=== PATIENT | male | born 1995 | race Hispanic/Latino ===

== ENCOUNTER 2018-03-18 20:17 | Inpatient (IN) | payer MEDICAID ==
[~2018-03-18] VITALS: Ht 152.4 cm; Wt 42.1 kg
[~2018-03-18 20:17] MED LIST: LAMO25TA40 PEG; LEVO500T2 PO; PANT40TA25 PO; POLY17PO4 PO; SIME80TA12 PO
[2018-03-18 21:00] LABS: BASOPHILS % (AUTO) 0.1 % (0.0-5.0); EOSINOPHILS % (AUTO) 0.2 % (0.0-8.0); HEMATOCRIT 46.3 % (42-54); LYMPHOCYTES % (AUTO) 7.3 % (21.0-51.0); MEAN CORPUSCULAR HEMOGLOBIN 26.7 pg (27.0-33.0); MEAN CORPUSCULAR HGB CONC 32.8 g/dL (32.0-36.0); MEAN CORPUSCULAR VOLUME 81.3 fL (79-99); MONOCYTES % (AUTO) 2.5 % (3.0-13.0); NEUTROPHILS % (AUTO) 89.9 % (40.0-77.0); NUCLEATED RED BLOOD CELLS 0.1 % (0.0-0.19); PLATELET COUNT (AUTO) 174 K/uL (130-400); RED BLOOD CELL COUNT(AUTO) 5.69 MIL/uL (4.50-6.20); RED CELL DISTRIBUTION WIDTH 18.8 % (11.0-15.5)
[2018-03-18 21:11] LABS: CARBON DIOXIDE 27 mmol/L (21-32); CHLORIDE 104 mmol/L (101-111); CREATININE 0.8 mg/dL (0.5-1.5); GLOMERULAR FILTR. RATE CALC 127 mL/min (>60); GLUCOSE,RANDOM 72 mg/dL (70-105); POTASSIUM 4.4 mmol/L (3.5-5.1); SODIUM SERUM 141 mmol/L (136-145); UREA NITROGEN, BLOOD 29 mg/dL (7-18)
[2018-03-18] MEDS ORDERED: SODIUM CHLORIDE 0.9% 1000ML 1,000 ML IV ONE (21:12)
[2018-03-18 21:13] LABS: INR 1.02 (0.85-1.15); PARTIAL THROMBOPLASTIN TIME 24.7 SEC (26.3-35.5); PROTHROMBIN TIME 10.7 SEC (9.6-11.6)
[2018-03-18] MEDS ORDERED: ACETAMINOPHEN 650 MG SUPPOSITORY RC ONE (21:13)
[2018-03-18] MEDS ORDERED: METRONIDAZOLE 500MG/100ML BAG 100 ML ONE (21:13)
[2018-03-18] MEDS ORDERED: IOPAMIDOL-370 75 ML VIAL IV ONE (21:25)
[2018-03-18 21:26] LABS: ALANINE AMINOTRANSFERASE 35 U/L (12-78); ALBUMIN 3.8 g/dL (3.5-5.0); ASPARTATE AMINOTRANSFERASE 41 U/L (10-37); BILIRUBIN,TOTAL 0.7 mg/dL (0.2-1.0); CREATINE KINASE MB 0.5 ng/mL (0.5-3.6); CREATINE KINASE, TOTAL 114 U/L (21-232); MYOGLOBIN 124 ng/mL (10-92); TOTAL PROTEIN, SERUM 7.7 g/dL (6.0-8.3); TROPONIN I < 0.04 ng/mL (0.00-0.06)
[2018-03-18 23:11] LABS: APPEARANCE,URINE Cloudy (CLEAR); BILIRUBIN,URINE Small (NEGATIVE); COLOR,URINE Dark Yellow (YELLOW); GLUCOSE, URINE (UA) Negative (NEGATIVE); KETONES,URINE Negative (NEGATIVE); LEUKOCYTE ESTERASE ,URINE Small (NEGATIVE); NITRATE,URINE Negative (NEGATIVE); OCCULT BLOOD,URINE Small (NEGATIVE); PROTEIN,URINE POS 1+ (NEGATIVE)
[2018-03-18 23:22] LABS: BACTERIA,URINE Few /HPF (None Seen); MUCUS,URINE Moderate LPF (None Seen); RENAL EPITHELIAL CELLS,URINE Moderate /HPF (None Seen); SQUAMOUS EPITHELIAL CELL,UR Many /HPF (0-2)
[2018-03-19] VITALS (22 sets, daily range): BP systolic 83–109; BP diastolic 41–63
[2018-03-19] MEDS ORDERED: SODIUM CHLORIDE 0.9% 1000ML 1,000 ML IV ONE (00:52)
[2018-03-19] MEDS: LEVOFLOXACIN 500 MG/D5W 100 ML 100 ML IV SCH (01:00)
[2018-03-19] MEDS ORDERED: LEVOFLOXACIN 500 MG/D5W 100 ML 100 ML ONE (01:04)
[2018-03-19] MEDS ORDERED: LIDOCAINE HCL-MPF 1% 2ML VIAL IJ PRN (01:45)
[2018-03-19] MEDS ORDERED: ACETAMINOPHEN 325 MG TAB PO PRN ×2 (01:45)
[2018-03-19] MEDS ORDERED: POTASSIUM CHLORIDE 20MEQ/100ML 100 ML IV PRN (01:45)
[2018-03-19] MEDS ORDERED: POTASSIUM CHLORIDE 20 MEQ ERTAB PO PRN (01:45)
[2018-03-19] MEDS ORDERED: GUAIFENESIN-DM 200/20 MG 10 ML PO PRN (01:45)
[2018-03-19] MEDS ORDERED: LACTULOSE 20 GM/30 ML UDCUP ONE (01:47)
[2018-03-19] MEDS ORDERED: ONDANSETRON HCL MDV 20ML 2 MG/ML VIAL IVP PRN (02:00)
[2018-03-19] MEDS ORDERED: VANCOMYCIN 1GM+NS 250ML 250 ML IV SCH (02:00)
[2018-03-19] MEDS ORDERED: NOREPINEPHRINE BITARTRATE 1 MG/1 ML ML IV ONE (03:13)
[2018-03-19] MEDS ORDERED: DEXTROSE 5%-WATER 500 ML IV ONE (03:14)
[2018-03-19] MEDS: SODIUM CHLORIDE 0.9% 1000ML 1,000 ML IV SCH ×3 (05:08→17:45)
[2018-03-19] MEDS ORDERED: NOREPINEPHRINE 4MG/NS 250ML 250 ML IV SCH (05:15)
[2018-03-19] MEDS ORDERED: IBUP100O20 PO (06:18)
[2018-03-19 07:02] LABS: BASOPHILS % (AUTO) 0.1 % (0.0-5.0); LYMPHOCYTES % (AUTO) 3.5 % (21.0-51.0); MEAN CORPUSCULAR HEMOGLOBIN 26.3 pg (27.0-33.0); MEAN CORPUSCULAR HGB CONC 32.3 g/dL (32.0-36.0); MEAN CORPUSCULAR VOLUME 81.6 fL (79-99); MONOCYTES % (AUTO) 6.6 % (3.0-13.0); NEUTROPHILS % (AUTO) 89.8 % (40.0-77.0); NUCLEATED RED BLOOD CELLS 0.1 % (0.0-0.19); PLATELET COUNT (AUTO) 137 K/uL (130-400); RED BLOOD CELL COUNT(AUTO) 4.91 MIL/uL (4.50-6.20); RED CELL DISTRIBUTION WIDTH 18.6 % (11.0-15.5); WHITE BLOOD COUNT (AUTO) 17.4 K/uL (4.8-10.8)
[2018-03-19 07:18] LABS: CREATININE 1.1 mg/dL (0.5-1.5); POTASSIUM 3.4 mmol/L (3.5-5.1)
[2018-03-19] MEDS: POTASSIUM CHLORIDE 10% ELIXIR 20 MEQ/15 ML UDCUP PO PRN ×2 (08:56→14:52)
[2018-03-19] MEDS: IPRATROPIUM/ALBUTEROL SULFATE 3 ML SOLUTION IH SCH ×3 (11:39→23:34)
[2018-03-19] MEDS ORDERED: BISA10SU16 RC (13:57)
[2018-03-19] MEDS ORDERED: BISACODYL 10 MG SUPP.RECT RC PRN (14:00)
[2018-03-19] MEDS: VANCOMYCIN 500MG+NS 100ML 100 ML IV SCH (14:52)
[2018-03-19] MEDS ORDERED: GENTOO OU (18:36)
[2018-03-19] MEDS: LAMOTRIGINE 25 MG TAB PEG SCH (20:09)
[2018-03-19] MEDS: LACTULOSE 20 GM/30 ML UDCUP PO PRN (20:09)
[2018-03-19] MEDS: GENTAMICIN SULFATE 0.3% 3.5 GM OPHTH OINT OU SCH (20:15)
[2018-03-19] MEDS ORDERED: ACETAMINOPHEN ELIXIR 650 MG/20.3 ML UDCUP PEG PRN ×2 (23:15)
[2018-03-19] MEDS ORDERED: ACETAMINOPHEN ELIXIR 650 MG/20.3 ML UDCUP ONE (23:32)
[2018-03-20] VITALS (26 sets, daily range): BP systolic 82–122; BP diastolic 43–78
[2018-03-20] MEDS: LEVOFLOXACIN 500 MG/D5W 100 ML 100 ML IV SCH (00:34)
[2018-03-20] MEDS: GENTAMICIN SULFATE 0.3% 3.5 GM OPHTH OINT OU SCH ×4 (00:34→19:21)
[2018-03-20] MEDS: SODIUM CHLORIDE 0.9% 1000ML 1,000 ML IV SCH ×3 (01:42→19:24)
[2018-03-20] MEDS: VANCOMYCIN 500MG+NS 100ML 100 ML IV SCH ×3 (01:53→21:54)
[2018-03-20 05:18] LABS: BASOPHILS % (AUTO) 0.1 % (0.0-5.0); LYMPHOCYTES % (AUTO) 6.7 % (21.0-51.0); MEAN CORPUSCULAR HEMOGLOBIN 27.3 pg (27.0-33.0); MEAN CORPUSCULAR HGB CONC 33.1 g/dL (32.0-36.0); MEAN CORPUSCULAR VOLUME 82.6 fL (79-99); NEUTROPHILS % (AUTO) 87.2 % (40.0-77.0); PLATELET COUNT (AUTO) 118 K/uL (130-400); RED BLOOD CELL COUNT(AUTO) 4.36 MIL/uL (4.50-6.20); RED CELL DISTRIBUTION WIDTH 18.8 % (11.0-15.5); WHITE BLOOD COUNT (AUTO) 17.2 K/uL (4.8-10.8)
[2018-03-20 05:19] LABS: CREATININE 0.7 mg/dL (0.5-1.5); POTASSIUM 3.3 mmol/L (3.5-5.1)
[2018-03-20] MEDS: POTASSIUM CHLORIDE 10% ELIXIR 20 MEQ/15 ML UDCUP PO PRN (06:26)
[2018-03-20] MEDS: IPRATROPIUM/ALBUTEROL SULFATE 3 ML SOLUTION IH SCH ×3 (06:41→19:20)
[2018-03-20] MEDS ORDERED: VANCOMYCIN 1GM+NS 250ML 250 ML IV SCH (14:30)
[2018-03-20] MEDS: LAMOTRIGINE 25 MG TAB PEG SCH (20:29)
[2018-03-21] VITALS (18 sets, daily range): BP systolic 99–128; BP diastolic 45–83
[2018-03-21] MEDS: LEVOFLOXACIN 500 MG/D5W 100 ML 100 ML IV SCH (00:20)
[2018-03-21] MEDS: GENTAMICIN SULFATE 0.3% 3.5 GM OPHTH OINT OU SCH ×4 (00:21→18:45)
[2018-03-21] MEDS: IPRATROPIUM/ALBUTEROL SULFATE 3 ML SOLUTION IH SCH ×4 (00:47→19:09)
[2018-03-21] MEDS: SODIUM CHLORIDE 0.9% 1000ML 1,000 ML IV SCH ×2 (02:25→19:37)
[2018-03-21 04:41] LABS: CREATININE 0.6 mg/dL (0.5-1.5); POTASSIUM 3.6 mmol/L (3.5-5.1)
[2018-03-21 05:03] LABS: BASOPHILS % (AUTO) 0.3 % (0.0-5.0); EOSINOPHILS % (AUTO) 0.1 % (0.0-8.0); HEMATOCRIT 34.9 % (42-54); MEAN CORPUSCULAR HEMOGLOBIN 26.4 pg (27.0-33.0); MEAN CORPUSCULAR HGB CONC 32.5 g/dL (32.0-36.0); MEAN CORPUSCULAR VOLUME 81.3 fL (79-99); MONOCYTES % (AUTO) 3.9 % (3.0-13.0); NEUTROPHILS % (AUTO) 88.7 % (40.0-77.0); PLATELET COUNT (AUTO) 118 K/uL (130-400); RED BLOOD CELL COUNT(AUTO) 4.29 MIL/uL (4.50-6.20); RED CELL DISTRIBUTION WIDTH 18.8 % (11.0-15.5)
[2018-03-21] MEDS: VANCOMYCIN 500MG+NS 100ML 100 ML IV SCH ×3 (05:43→22:11)
[2018-03-21] MEDS ORDERED: FUROSEMIDE 10 MG/ML 2ML VIAL ONE (06:39)
[2018-03-21 07:27] LABS: ABG BASE EXCESS -0.2 mmol/L (-2.0-3.0); ABG HCO3 24.1 mmol/L (21.0-28.0); ABG OXYGEN SATURATION 96.3 % (95.0-99.0); ABG PCO2 38 mmHg (35-48)
[2018-03-21] MEDS ORDERED: FUROSEMIDE 10 MG/ML 2ML VIAL IV SCH (07:35)
[2018-03-21] MEDS: LAMOTRIGINE 25 MG TAB PEG SCH (19:49)
[2018-03-22 00:22] VITALS: BP 110/63
[2018-03-22] MEDS: LEVOFLOXACIN 500 MG/D5W 100 ML 100 ML IV SCH (00:28)
[2018-03-22] MEDS: GENTAMICIN SULFATE 0.3% 3.5 GM OPHTH OINT OU SCH ×4 (00:28→18:45)
[2018-03-22] MEDS: IPRATROPIUM/ALBUTEROL SULFATE 3 ML SOLUTION IH SCH ×5 (00:39→23:57)
[2018-03-22] MEDS: SODIUM CHLORIDE 0.9% 1000ML 1,000 ML IV SCH ×2 (00:40→20:22)
[2018-03-22 04:42] VITALS: BP 113/69
[2018-03-22] MEDS: VANCOMYCIN 500MG+NS 100ML 100 ML IV SCH ×3 (05:52→21:26)
[2018-03-22 06:25] LABS: HEMATOCRIT 34.1 % (42-54); MEAN CORPUSCULAR HEMOGLOBIN 27.4 pg (27.0-33.0); MEAN CORPUSCULAR HGB CONC 33.8 g/dL (32.0-36.0); NUCLEATED RED BLOOD CELLS 0.1 % (0.0-0.19); PLATELET COUNT (AUTO) 134 K/uL (130-400); RED CELL DISTRIBUTION WIDTH 18.7 % (11.0-15.5); WHITE BLOOD COUNT (AUTO) 7.4 K/uL (4.8-10.8)
[2018-03-22 06:40] LABS: CREATININE 0.6 mg/dL (0.5-1.5); MAGNESIUM 1.7 mg/dL (1.80-2.40); POTASSIUM 3.4 mmol/L (3.5-5.1)
[2018-03-22] MEDS: POTASSIUM CHLORIDE 10% ELIXIR 20 MEQ/15 ML UDCUP PO PRN (06:55)
[2018-03-22] MEDS ORDERED: VANCOMYCIN 500MG+NS 100ML 100 ML IV SCH (07:00)
[2018-03-22 08:00] VITALS: BP 118/74
[2018-03-22] MEDS ORDERED: MAGNESIUM 2GM PREMIX 50ML 50 ML IV SCH (10:30)
[2018-03-22 11:55] VITALS: BP 113/81
[2018-03-22] MEDS: HEPARIN SODIUM 5000UNIT/ML 1ML VIAL SQ SCH ×3 (13:15→20:18)
[2018-03-22] MEDS: LEVOFLOXACIN 500 MG TABLET PO SCH (13:16)
[2018-03-22 16:00] VITALS: BP 124/64
[2018-03-22] MEDS: LACTULOSE 20 GM/30 ML UDCUP PO PRN (18:09)
[2018-03-22 19:20] VITALS: BP 126/82
[2018-03-22] MEDS: DOXYCYCLINE HYCLATE 100 MG TABLET PO SCH (20:08)
[2018-03-22] MEDS: LAMOTRIGINE 25 MG TAB PEG SCH (20:08)
[2018-03-23] VITALS (7 sets, daily range): BP systolic 107–139; BP diastolic 69–87
[2018-03-23] MEDS: GENTAMICIN SULFATE 0.3% 3.5 GM OPHTH OINT OU SCH ×4 (00:32→19:43)
[2018-03-23] MEDS: SODIUM CHLORIDE 0.9% 1000ML 1,000 ML IV SCH ×2 (03:19→18:22)
[2018-03-23 06:18] LABS: HEMATOCRIT 35.3 % (42-54); MEAN CORPUSCULAR HEMOGLOBIN 27.1 pg (27.0-33.0); MEAN CORPUSCULAR HGB CONC 33.5 g/dL (32.0-36.0); MEAN CORPUSCULAR VOLUME 80.8 fL (79-99); NUCLEATED RED BLOOD CELLS 0.1 % (0.0-0.19); PLATELET COUNT (AUTO) 145 K/uL (130-400); RED BLOOD CELL COUNT(AUTO) 4.37 MIL/uL (4.50-6.20); RED CELL DISTRIBUTION WIDTH 19.1 % (11.0-15.5); WHITE BLOOD COUNT (AUTO) 6.6 K/uL (4.8-10.8)
[2018-03-23 06:28] LABS: ALBUMIN 2.8 g/dL (3.5-5.0); BILIRUBIN,TOTAL 0.5 mg/dL (0.2-1.0); CREATININE 0.7 mg/dL (0.5-1.5); MAGNESIUM 2.2 mg/dL (1.80-2.40); PHOSPHORUS 3.8 mg/dL (2.5-4.9); POTASSIUM 3.4 mmol/L (3.5-5.1); TOTAL PROTEIN, SERUM 6.2 g/dL (6.0-8.3)
[2018-03-23] MEDS: VANCOMYCIN 500MG+NS 100ML 100 ML IV SCH (06:54)
[2018-03-23] MEDS: POTASSIUM CHLORIDE 10% ELIXIR 20 MEQ/15 ML UDCUP PO PRN (06:55)
[2018-03-23] MEDS: IPRATROPIUM/ALBUTEROL SULFATE 3 ML SOLUTION IH SCH ×3 (07:25→18:36)
[2018-03-23 08:16] LABS: LYMPHOCYTES % (MANUAL) 28 % (22-44); MAN.DIFF COMMENT-IMPRESSION MANUAL DIFFERENTIAL; MONOCYTES % (MANUAL) 9 % (2-9); PLATELET MORPHOLOGY COMMENT ADEQUATE; SEGMENTED NEUTROPHILS % 63 % (40-70)
[2018-03-23] MEDS: HEPARIN SODIUM 5000UNIT/ML 1ML VIAL SQ SCH ×2 (09:00→21:00)
[2018-03-23] MEDS: LEVOFLOXACIN 500 MG TABLET PO SCH (09:18)
[2018-03-23] MEDS: DOXYCYCLINE HYCLATE 100 MG TABLET PO SCH (09:19)
[2018-03-23] MEDS ORDERED: COMPOUND IV REFRIGERATED 1 EACH IVSOLN MISC PRN (14:15)
[2018-03-23] MEDS: VANCOMYCIN 750MG + NS 250 ML IV SCH ×4 (18:02→20:46)
[2018-03-23] MEDS: LACTULOSE 20 GM/30 ML UDCUP PO PRN (18:06)
[2018-03-23] MEDS: LAMOTRIGINE 25 MG TAB PEG SCH (20:47)
[2018-03-24] MEDS: IPRATROPIUM/ALBUTEROL SULFATE 3 ML SOLUTION IH SCH ×2 (00:01→07:02)
[2018-03-24] MEDS: GENTAMICIN SULFATE 0.3% 3.5 GM OPHTH OINT OU SCH ×3 (00:45→12:45)
[2018-03-24 04:00] VITALS: BP 132/83
[2018-03-24] MEDS: POTASSIUM CHLORIDE 10% ELIXIR 20 MEQ/15 ML UDCUP PO PRN ×2 (04:45→05:59)
[2018-03-24] MEDS: VANCOMYCIN 750MG + NS 250 ML IV SCH ×4 (05:59→14:30)
[2018-03-24] MEDS: SODIUM CHLORIDE 0.9% 1000ML 1,000 ML IV SCH (06:58)
[2018-03-24] MEDS: HEPARIN SODIUM 5000UNIT/ML 1ML VIAL SQ SCH (08:17)
[2018-03-24] MEDS: LEVOFLOXACIN 500 MG TABLET PO SCH (08:18)
[2018-03-24] MEDS: LACTULOSE 20 GM/30 ML UDCUP PO PRN (08:21)
[2018-03-24 08:24] LABS: CREATININE 0.7 mg/dL (0.5-1.5); POTASSIUM 4.1 mmol/L (3.5-5.1)
[2018-03-24 08:30] VITALS: BP 130/87
[2018-03-24] MEDS ORDERED: LEVO500T2 PO (11:43)
[2018-03-24 12:08] VITALS: BP 129/81
== END 2018-03-24 16:45 | disposition home or self-care (01) | DRG 720 ==
LOC: EDH 20:17 → EDHIP 20:18 → 2BH 03-19 04:29 → 2CH 03-20 20:06 → 3CH 03-21 18:19
PROVIDERS: ADMIT Internal Medicine; ATTEND Internal Medicine
DX: A41.9 Sepsis, unspecified organism (principal); J96.01 Acute respiratory failure with hypoxia; J69.0 Pneumonitis due to inhalation of food and vomit; R65.21 Severe sepsis with septic shock; G82.50 Quadriplegia, unspecified; R13.12 Dysphagia, oropharyngeal phase; G40.909 Epilepsy, unspecified, not intractable, without status epilepticus; K59.00 Constipation, unspecified; K21.9 Gastro-esophageal reflux disease without esophagitis; B96.89 Other specified bacterial agents as the cause of diseases classified elsewhere; E87.6 Hypokalemia; Z53.20 Procedure and treatment not carried out because of patient's decision for unspecified reasons; F79 Unspecified intellectual disabilities; J98.19 Other pulmonary collapse; Z88.1 Allergy status to other antibiotic agents; Z88.8 Allergy status to other drugs, medicaments and biological substances; Z87.01 Personal history of pneumonia (recurrent); Z87.440 Personal history of urinary (tract) infections; Z74.01 Bed confinement status; Q89.8 Other specified congenital malformations; Z93.1 Gastrostomy status; Z95.1 Presence of aortocoronary bypass graft; Z88.0 Allergy status to penicillin
CPT/HCPCS: 36415; 36600; 71045; 71250; 74018; 74177; 80048; 80053; 80202; 81001; 82550; 82553; 82803; 83605; 83735; 83874; 84100; 84484; 85025; 85027; 85610; 85730; 87040; 87088; 87186; 93005; 94640; 94664; 94667; 94668; A6250; J1644; J1940; J1956; J3370; J3475; J3490; J7030; J7060; Q9967

== ENCOUNTER 2018-04-26 04:52 | Inpatient (IN) | payer MEDICAID ==
[~2018-04-26] VITALS: Ht 152.4 cm; Wt 45.1 kg
[~2018-04-26 04:52] MED LIST changes: +BISA10SU16 RC; +GENTOO OU; +IBUP100O20 PO; -PANT40TA25 PO; -POLY17PO4 PO; -SIME80TA12 PO
[2018-04-26] MEDS ORDERED: ACETAMINOPHEN 650 MG SUPPOSITORY RC ONE (05:10)
[2018-04-26] MEDS ORDERED: LORAZEPAM 2 MG/ML 1 ML VIAL ONE (05:10)
[2018-04-26 05:22] LABS: APPEARANCE,URINE Clear (CLEAR); BILIRUBIN,URINE Negative (NEGATIVE); COLOR,URINE Dark Yellow (YELLOW); GLUCOSE, URINE (UA) Negative (NEGATIVE); KETONES,URINE Negative (NEGATIVE); LEUKOCYTE ESTERASE ,URINE Trace (NEGATIVE); NITRATE,URINE Negative (NEGATIVE); OCCULT BLOOD,URINE Negative (NEGATIVE); PH,URINE 8.5 (5.0-8.0); PROTEIN,URINE Trace (NEGATIVE)
[2018-04-26] MEDS ORDERED: MEROPENEM 1 GM VIAL ONE (05:24)
[2018-04-26 05:27] LABS: BACTERIA,URINE Rare /HPF (None Seen); MUCUS,URINE Few LPF (None Seen); RBC,URINE None Seen /HPF (0-1); SQUAMOUS EPITHELIAL CELL,UR Few /HPF (0-2); WBC,URINE None Seen /HPF (0-1)
[2018-04-26] MEDS ORDERED: IPRATROPIUM 0.5 MG/2.5 ML INH IH ONE (05:29)
[2018-04-26 05:48] LABS: CARBON DIOXIDE 25 mmol/L (21-32); CHLORIDE 107 mmol/L (101-111); CREATININE 0.9 mg/dL (0.5-1.5); GLOMERULAR FILTR. RATE CALC 111 mL/min (>60); GLUCOSE,RANDOM 91 mg/dL (70-105); POTASSIUM 4.6 mmol/L (3.5-5.1); SODIUM SERUM 149 mmol/L (136-145); UREA NITROGEN, BLOOD 22 mg/dL (7-18)
[2018-04-26 05:55] LABS: BASOPHILS % (AUTO) 0.3 % (0.0-5.0); EOSINOPHILS % (AUTO) 0.1 % (0.0-8.0); HEMATOCRIT 48.2 % (42-54); MEAN CORPUSCULAR HEMOGLOBIN 26.9 pg (27.0-33.0); MEAN CORPUSCULAR VOLUME 84.1 fL (79-99); MONOCYTES % (AUTO) 3.6 % (3.0-13.0); NUCLEATED RED BLOOD CELLS 0.1 % (0.0-0.19); PLATELET COUNT (AUTO) 164 K/uL (130-400); RED BLOOD CELL COUNT(AUTO) 5.73 MIL/uL (4.50-6.20); RED CELL DISTRIBUTION WIDTH 18.9 % (11.0-15.5); WHITE BLOOD COUNT (AUTO) 11.9 K/uL (4.8-10.8)
[2018-04-26 05:59] LABS: ALANINE AMINOTRANSFERASE 23 U/L (12-78); ALBUMIN 3.9 g/dL (3.5-5.0); ASPARTATE AMINOTRANSFERASE 29 U/L (10-37); BILIRUBIN,TOTAL 0.3 mg/dL (0.2-1.0); CREATINE KINASE MB 0.6 ng/mL (0.5-3.6); CREATINE KINASE, TOTAL 92 U/L (21-232); MYOGLOBIN 364 ng/mL (10-92); TOTAL PROTEIN, SERUM 7.9 g/dL (6.0-8.3); TROPONIN I < 0.04 ng/mL (0.00-0.06)
[2018-04-26 06:07] LABS: INR 0.99 (0.85-1.15); PARTIAL THROMBOPLASTIN TIME 23.3 SEC (26.3-35.5); PROTHROMBIN TIME 10.4 SEC (9.6-11.6)
[2018-04-26] MEDS ORDERED: SODIUM CHLORIDE 0.9% 1000ML 1,000 ML IV ONE (09:35)
[2018-04-26 10:32] VITALS: BP 100/43
[2018-04-26] MEDS ORDERED: MEROPENEM 1 GM VIAL IVP SCH ×2 (10:45→13:00)
[2018-04-26] MEDS: SODIUM CHLORIDE 0.9% 1000ML 1,000 ML IV SCH ×3 (10:45→18:17)
[2018-04-26] MEDS ORDERED: PHARMACY COMMUNICATION MISC SCH (14:00)
[2018-04-26] MEDS ORDERED: MEROPENEM 500MG+NS 50ML 50 ML IV SCH (14:00)
[2018-04-26] MEDS ORDERED: ACETAMINOPHEN 325 MG TAB PO PRN (14:15)
[2018-04-26] MEDS ORDERED: ONDANSETRON HCL 4 MG/2 ML VIAL IVP PRN (14:15)
[2018-04-26] MEDS: MEROPENEM 500 MG VIAL IVP SCH ×2 (14:41→23:10)
[2018-04-26] MEDS ORDERED: PANT40SU PO (15:58)
[2018-04-26 16:17] VITALS: BP 98/58
[2018-04-26] MEDS: IPRATROPIUM/ALBUTEROL SULFATE 3 ML SOLUTION IH SCH ×2 (18:29→23:46)
[2018-04-26] MEDS ORDERED: ENSURE PEG (18:59)
[2018-04-26 19:49] VITALS: BP 88/51
[2018-04-26 23:33] VITALS: BP 91/51
[2018-04-27] MEDS: SODIUM CHLORIDE 0.9% 1000ML 1,000 ML IV SCH ×3 (02:28→23:53)
[2018-04-27 04:16] VITALS: BP 96/44
[2018-04-27 04:21] LABS: CREATININE 0.6 mg/dL (0.5-1.5); POTASSIUM 3.4 mmol/L (3.5-5.1)
[2018-04-27 06:15] LABS: MEAN CORPUSCULAR HEMOGLOBIN 26.8 pg (27.0-33.0); MEAN CORPUSCULAR HGB CONC 32.8 g/dL (32.0-36.0); MEAN CORPUSCULAR VOLUME 81.6 fL (79-99); PLATELET COUNT (AUTO) 123 K/uL (130-400); RED BLOOD CELL COUNT(AUTO) 4.17 MIL/uL (4.50-6.20); RED CELL DISTRIBUTION WIDTH 18.3 % (11.0-15.5); WHITE BLOOD COUNT (AUTO) 17.5 K/uL (4.8-10.8)
[2018-04-27] MEDS: IPRATROPIUM/ALBUTEROL SULFATE 3 ML SOLUTION IH SCH ×3 (06:30→18:38)
[2018-04-27] MEDS: MEROPENEM 500 MG VIAL IVP SCH ×3 (06:55→21:29)
[2018-04-27 07:00] VITALS: BP 93/72
[2018-04-27 07:33] LABS: BAND NEUTROPHILS % (MANUAL) 9 % (0-2); LYMPHOCYTES % (MANUAL) 8 % (22-44); MAN.DIFF COMMENT-IMPRESSION MANUAL DIFFERENTIAL; MONOCYTES % (MANUAL) 2 % (2-9); SEGMENTED NEUTROPHILS % 81 % (40-70)
[2018-04-27 07:34] LABS: PLATELET MORPHOLOGY COMMENT SLIGHTLY DECREASED
[2018-04-27 11:00] VITALS: BP 92/60
[2018-04-27] MEDS ORDERED: VANCOMYCIN 1GM+NS 250ML 250 ML IV SCH (11:45)
[2018-04-27] MEDS ORDERED: VANCOMYCIN PROTOCOL PER PHARMACY IV SCH (11:45)
[2018-04-27] MEDS ORDERED: COMPOUND IV REFRIGERATED 1 EACH IVSOLN MISC PRN (12:00)
[2018-04-27] MEDS ORDERED: LIDOCAINE HCL-MPF 1% 2ML VIAL IVP PRN (12:00)
[2018-04-27] MEDS ORDERED: POTASSIUM CHLORIDE 20 MEQ ERTAB PO PRN (12:00)
[2018-04-27] MEDS ORDERED: POTASSIUM CHLORIDE 20MEQ/100ML 100 ML IV PRN (12:00)
[2018-04-27] MEDS: VANCOMYCIN 750MG + NS 250 ML IV SCH ×2 (12:39)
[2018-04-27 16:00] VITALS: BP 117/67
[2018-04-27] MEDS: POTASSIUM CHLORIDE 10% ELIXIR 20 MEQ/15 ML UDCUP PO PRN ×2 (18:18→21:30)
[2018-04-27 20:03] VITALS: BP 127/66
[2018-04-27 23:53] VITALS: BP 109/74
[2018-04-28] MEDS: VANCOMYCIN 750MG + NS 250 ML IV SCH ×6 (00:06→23:49)
[2018-04-28] MEDS: IPRATROPIUM/ALBUTEROL SULFATE 3 ML SOLUTION IH SCH ×4 (00:15→19:04)
[2018-04-28] MEDS: SODIUM CHLORIDE 0.9% 1000ML 1,000 ML IV SCH ×3 (02:45→21:04)
[2018-04-28 04:17] VITALS: BP 114/65
[2018-04-28 04:39] LABS: HEMATOCRIT 30.9 % (42-54); MEAN CORPUSCULAR HEMOGLOBIN 28.6 pg (27.0-33.0); MEAN CORPUSCULAR HGB CONC 35.3 g/dL (32.0-36.0); MEAN CORPUSCULAR VOLUME 81.1 fL (79-99); NUCLEATED RED BLOOD CELLS 0.1 % (0.0-0.19); PLATELET COUNT (AUTO) 105 K/uL (130-400); RED CELL DISTRIBUTION WIDTH 18.3 % (11.0-15.5); WHITE BLOOD COUNT (AUTO) 10.7 K/uL (4.8-10.8)
[2018-04-28 04:48] LABS: BAND NEUTROPHILS % (MANUAL) 3 % (0-2); LYMPHOCYTES % (MANUAL) 30 % (22-44); MAN.DIFF COMMENT-IMPRESSION MANUAL DIFFERENTIAL; MONOCYTES % (MANUAL) 3 % (2-9); SEGMENTED NEUTROPHILS % 64 % (40-70)
[2018-04-28 04:49] LABS: PLATELET MORPHOLOGY COMMENT SLIGHTLY DECREASED
[2018-04-28] MEDS: MEROPENEM 500 MG VIAL IVP SCH ×3 (06:29→21:03)
[2018-04-28 07:15] VITALS: BP 133/64
[2018-04-28] MEDS ORDERED: ACETAMINOPHEN ELIXIR 650 MG/20.3 ML UDCUP ONE (11:00)
[2018-04-28 11:09] VITALS: BP 107/72
[2018-04-28] MEDS: FLUCONAZOLE 200 MG/NS 100 ML 100 ML IV SCH (11:17)
[2018-04-28 16:38] VITALS: BP 122/76
[2018-04-28 19:37] VITALS: BP 108/69
[2018-04-28 23:19] VITALS: BP 111/70
[2018-04-29] MEDS: IPRATROPIUM/ALBUTEROL SULFATE 3 ML SOLUTION IH SCH ×5 (00:12→23:22)
[2018-04-29] MEDS: SODIUM CHLORIDE 0.9% 1000ML 1,000 ML IV SCH ×3 (02:45→18:45)
[2018-04-29 03:56] LABS: BASOPHILS % (AUTO) 0.2 % (0.0-5.0); EOSINOPHILS % (AUTO) 0.7 % (0.0-8.0); HEMATOCRIT 33.9 % (42-54); LYMPHOCYTES % (AUTO) 16.9 % (21.0-51.0); MEAN CORPUSCULAR HGB CONC 33.4 g/dL (32.0-36.0); MEAN CORPUSCULAR VOLUME 80.8 fL (79-99); MONOCYTES % (AUTO) 6.7 % (3.0-13.0); NEUTROPHILS % (AUTO) 75.5 % (40.0-77.0); PLATELET COUNT (AUTO) 136 K/uL (130-400); RED BLOOD CELL COUNT(AUTO) 4.19 MIL/uL (4.50-6.20); RED CELL DISTRIBUTION WIDTH 18.5 % (11.0-15.5); WHITE BLOOD COUNT (AUTO) 6.9 K/uL (4.8-10.8)
[2018-04-29 04:07] LABS: CREATININE 0.6 mg/dL (0.5-1.5); POTASSIUM 3.4 mmol/L (3.5-5.1)
[2018-04-29 04:21] VITALS: BP 117/72
[2018-04-29] MEDS: MEROPENEM 500 MG VIAL IVP SCH ×3 (05:01→21:20)
[2018-04-29 07:15] VITALS: BP 119/79
[2018-04-29] MEDS: FLUCONAZOLE 200 MG/NS 100 ML 100 ML IV SCH (11:58)
[2018-04-29 12:10] VITALS: BP 123/56
[2018-04-29 15:30] VITALS: BP 125/85
[2018-04-29] MEDS ORDERED: VANCOMYCIN 1GM+NS 250ML 250 ML IV ONE (18:00)
[2018-04-29 19:29] VITALS: BP 126/83
[2018-04-29] MEDS: POTASSIUM CHLORIDE 10% ELIXIR 20 MEQ/15 ML UDCUP PO PRN (22:21)
[2018-04-29 23:40] VITALS: BP 107/72
[2018-04-30] MEDS: POTASSIUM CHLORIDE 10% ELIXIR 20 MEQ/15 ML UDCUP PO PRN (00:02)
[2018-04-30] MEDS ORDERED: VANCOMYCIN 750MG + NS 250 ML IV SCH ×2 (02:00)
[2018-04-30] MEDS: SODIUM CHLORIDE 0.9% 1000ML 1,000 ML IV SCH (02:45)
[2018-04-30 03:55] VITALS: BP 118/79
[2018-04-30] MEDS: MEROPENEM 500 MG VIAL IVP SCH (05:05)
[2018-04-30] MEDS: IPRATROPIUM/ALBUTEROL SULFATE 3 ML SOLUTION IH SCH ×2 (06:05→11:21)
[2018-04-30 06:26] LABS: BASOPHILS % (AUTO) 0.4 % (0.0-5.0); EOSINOPHILS % (AUTO) 3.3 % (0.0-8.0); HEMATOCRIT 34.7 % (42-54); LYMPHOCYTES % (AUTO) 29.4 % (21.0-51.0); MEAN CORPUSCULAR HEMOGLOBIN 27.3 pg (27.0-33.0); MEAN CORPUSCULAR HGB CONC 33.4 g/dL (32.0-36.0); MEAN CORPUSCULAR VOLUME 81.5 fL (79-99); MONOCYTES % (AUTO) 9.8 % (3.0-13.0); NEUTROPHILS % (AUTO) 57.1 % (40.0-77.0); NUCLEATED RED BLOOD CELLS 0.1 % (0.0-0.19); PLATELET COUNT (AUTO) 155 K/uL (130-400); RED BLOOD CELL COUNT(AUTO) 4.25 MIL/uL (4.50-6.20); RED CELL DISTRIBUTION WIDTH 19.1 % (11.0-15.5); WHITE BLOOD COUNT (AUTO) 4.8 K/uL (4.8-10.8)
[2018-04-30 06:30] LABS: CREATININE 0.7 mg/dL (0.5-1.5)
[2018-04-30 07:15] VITALS: BP 122/91
[2018-04-30 12:00] VITALS: BP 116/76
== END 2018-04-30 16:24 | disposition home or self-care (01) | DRG 720 ==
LOC: EDH 04:52 → INTOOBSV 04:53 → EDHIP 04:53 → OBSVTOIN 04:53 → 2DH 10:20
PROVIDERS: ADMIT Family Medicine; ATTEND Family Medicine
DX: A41.9 Sepsis, unspecified organism (principal); E43 Unspecified severe protein-calorie malnutrition; G82.50 Quadriplegia, unspecified; E87.0 Hyperosmolality and hypernatremia; J18.9 Pneumonia, unspecified organism; J20.9 Acute bronchitis, unspecified; Q89.8 Other specified congenital malformations; G40.909 Epilepsy, unspecified, not intractable, without status epilepticus; B96.89 Other specified bacterial agents as the cause of diseases classified elsewhere; E87.1 Hypo-osmolality and hyponatremia; E87.6 Hypokalemia; F79 Unspecified intellectual disabilities; K21.9 Gastro-esophageal reflux disease without esophagitis; R62.50 Unspecified lack of expected normal physiological development in childhood; Z74.01 Bed confinement status; Z68.1 Body mass index [BMI] 19.9 or less, adult; Z88.0 Allergy status to penicillin; Z88.8 Allergy status to other drugs, medicaments and biological substances; Z87.01 Personal history of pneumonia (recurrent); Z87.440 Personal history of urinary (tract) infections; Z88.1 Allergy status to other antibiotic agents
CPT/HCPCS: 36415; 71045; 80048; 80053; 80202; 81001; 82550; 82553; 83605; 83874; 84132; 84484; 85025; 85610; 85730; 87040; 87088; 87186; 87633; 93005; 93306; 94640; 94664; 99291; A4218; J1450; J2060; J2185; J3370; J7030

== ENCOUNTER 2018-12-15 14:33 | Inpatient (IN) | payer OTHER, MEDICAID ==
[~2018-12-15] VITALS: Ht 154.9 cm; Wt 42.3 kg
[~2018-12-15 14:33] MED LIST changes: -BISA10SU16 RC; +ENSURE PEG; -GENTOO OU; -LEVO500T2 PO; +PANT40SU PO
[2018-12-15] MEDS ORDERED: ACETAMINOPHEN 650 MG SUPPOSITORY RC ONE (14:42)
[2018-12-15 15:22] LABS: BASOPHILS % (AUTO) 0.2 % (0.0-5.0); HEMATOCRIT 41.4 % (42-54); MEAN CORPUSCULAR HEMOGLOBIN 26.3 pg (27.0-33.0); MEAN CORPUSCULAR VOLUME 82.3 fL (79-99); NEUTROPHILS % (AUTO) 90.8 % (40.0-77.0); NUCLEATED RED BLOOD CELLS 0.1 % (0.0-0.19); PLATELET COUNT (AUTO) 159 K/uL (130-400); RED BLOOD CELL COUNT(AUTO) 5.03 MIL/uL (4.50-6.20); RED CELL DISTRIBUTION WIDTH 19.1 % (11.0-15.5); WHITE BLOOD COUNT (AUTO) 8.9 K/uL (4.8-10.8)
[2018-12-15] MEDS ORDERED: SODIUM CHLORIDE 0.9% 1000ML 1,000 ML IV ONE ×2 (15:26→22:43)
[2018-12-15 15:32] LABS: CARBON DIOXIDE 28 mmol/L (21-32); CHLORIDE 100 mmol/L (101-111); GLOMERULAR FILTR. RATE CALC 98 mL/min (>60); GLUCOSE,RANDOM 138 mg/dL (70-105); POTASSIUM 3.8 mmol/L (3.5-5.1); SODIUM SERUM 140 mmol/L (136-145); UREA NITROGEN, BLOOD 18 mg/dL (7-18)
[2018-12-15 15:35] LABS: INR 1.06 (0.85-1.15); PARTIAL THROMBOPLASTIN TIME 33.7 SEC (26.3-35.5); PROTHROMBIN TIME 11.1 SEC (9.6-11.6)
[2018-12-15 15:43] LABS: ALANINE AMINOTRANSFERASE 25 U/L (12-78); ALBUMIN 3.5 g/dL (3.5-5.0); ASPARTATE AMINOTRANSFERASE 24 U/L (10-37); BILIRUBIN,TOTAL 0.5 mg/dL (0.2-1.0); CREATINE KINASE, TOTAL 137 U/L (21-232); MYOGLOBIN 56 ng/mL (10-92); TOTAL PROTEIN, SERUM 7.2 g/dL (6.0-8.3); TROPONIN I < 0.04 ng/mL (0.00-0.06)
[2018-12-15 16:07] LABS: BILIRUBIN,URINE Small (NEGATIVE); COLOR,URINE Dark Yellow (YELLOW); GLUCOSE, URINE (UA) Negative (NEGATIVE); KETONES,URINE Trace mg/dL (NEGATIVE); LEUKOCYTE ESTERASE ,URINE Trace (NEGATIVE); NITRATE,URINE Negative (NEGATIVE); OCCULT BLOOD,URINE Negative (NEGATIVE); PH,URINE 5.5 (5.0-8.0); PROTEIN,URINE POS 2+ (NEGATIVE)
[2018-12-15] MEDS ORDERED: LEVOFLOXACIN 750 MG/D5W 150 ML 150 ML ONE (16:09)
[2018-12-15 16:11] LABS: APPEARANCE,URINE Clear (CLEAR)
[2018-12-15 16:47] LABS: BACTERIA,URINE Rare /HPF (None Seen); MUCUS,URINE Many LPF (None Seen); RBC,URINE None Seen /HPF (0-1); WBC,URINE 0-1 /HPF (0-1)
[2018-12-15] MEDS ORDERED: AZITHROMYCIN 500MG+NS 250ML 250 ML IV ONE (18:18)
[2018-12-15] MEDS: SODIUM CHLORIDE 0.9% 1000ML 1,000 ML IV SCH (20:06)
[2018-12-15] MEDS: AZITHROMYCIN 500MG+NS 250ML 250 ML IV SCH (20:15)
[2018-12-15] MEDS: LEVOFLOXACIN 500 MG/D5W 100 ML 100 ML IV SCH (20:15)
[2018-12-15] MEDS ORDERED: ONDANSETRON HCL 4 MG/2 ML VIAL IV PRN (20:15)
[2018-12-15] MEDS: PHARMACY COMMUNICATION MISC SCH (20:45)
[2018-12-15] MEDS: ENOXAPARIN SODIUM 30 MG/0.3 ML SQ SCH (21:00)
[2018-12-15] MEDS: LAMOTRIGINE 25 MG PEG SCH (21:00)
[2018-12-15] MEDS: FAMOTIDINE/PF 20 MG/2 ML VIAL IV SCH (21:00)
[2018-12-15] MEDS ORDERED: ENOXAPARIN SODIUM 30 MG/0.3 ML SQ ONE (22:43)
[2018-12-15] MEDS ORDERED: FAMOTIDINE/PF 20 MG/2 ML VIAL IV ONE (22:44)
[2018-12-15] MEDS ORDERED: [UNRECOGNIZED DRUG - OTHER] PEG SCH (23:00)
[2018-12-15 23:07] VITALS: BP 99/63
[2018-12-15] MEDS: ALBUTEROL SULFATE 0.083% 2.5 MG/3 ML INH IH SCH (23:57)
--- NOTE | 2018-12-16 00:30 | NUR ---
LOVENOX Grandmother refused Lovenox,she signed refusal form.
[2018-12-16] MEDS: PHARMACY COMMUNICATION MISC SCH ×2 (00:45→04:45)
--- NOTE | 2018-12-16 02:00 | NUR ---
ROUNDS Pt resting in bed,fidgety.Iv site with no redness,no swelling.
[2018-12-16 03:00] VITALS: BP 116/48
--- NOTE | 2018-12-16 04:00 | NUR ---
IV Pts rt hand swollen,fingers purple,Iv dcd.cath tip intact.Applied warm compress,elevated on pillows.Notified Leonardo Avalos.Grandmother said not to put another iv for now. Addendum: 12/16/18 at 0440 by LYNETTE ONEILL RN RN Amended: Links added.
[2018-12-16] MEDS: ACETAMINOPHEN ELIXIR 650 MG/20.3 ML UDCUP PEG PRN ×2 (04:52→23:02)
--- NOTE | 2018-12-16 05:00 | NUR ---
FF-UP Rt hand less swollen now,fingernails pink,good capillary refill.radial pulse palpable.Notified Speech And Language Tutor HAILEE NOVA.Medicated with Tylenol via peg tube.Blisters noted to rt hand.
--- NOTE | 2018-12-16 05:08 | NUR ---
MARITZA SALAS CAME and looked at pt.s rt hand.He said it's getting better.FOr now leave Iv out.
--- NOTE | 2018-12-16 05:30 | NUR ---
FF-UP Rt hand swelling subsiding,blisters noted around wrist area.Warm compress and arm elevation continues.Good CMS noted.
[2018-12-16] MEDS: SODIUM CHLORIDE 0.9% 1000ML 1,000 ML IV SCH ×2 (06:06→13:35)
[2018-12-16 06:29] LABS: BASOPHILS % (AUTO) 0.1 % (0.0-5.0); HEMATOCRIT 37.2 % (42-54); MEAN CORPUSCULAR HEMOGLOBIN 26.4 pg (27.0-33.0); MEAN CORPUSCULAR HGB CONC 32.2 g/dL (32.0-36.0); MEAN CORPUSCULAR VOLUME 81.9 fL (79-99); MONOCYTES % (AUTO) 3.5 % (3.0-13.0); NEUTROPHILS % (AUTO) 93.4 % (40.0-77.0); PLATELET COUNT (AUTO) 126 K/uL (130-400); RED BLOOD CELL COUNT(AUTO) 4.54 MIL/uL (4.50-6.20); RED CELL DISTRIBUTION WIDTH 19.1 % (11.0-15.5); WHITE BLOOD COUNT (AUTO) 11.7 K/uL (4.8-10.8)
--- NOTE | 2018-12-16 06:47 | NUR ---
MD Dr Angelic carcamo here to see pt. Addendum: 12/16/18 at 0814 by LYNETTE ONEILL RN RN *alannah garcia
[2018-12-16] MEDS: ALBUTEROL SULFATE 0.083% 2.5 MG/3 ML INH IH SCH ×4 (06:50→23:27)
[2018-12-16 07:00] VITALS: BP 139/59
--- NOTE | 2018-12-16 07:15 | NUR ---
REPORT Report given to Berto Lucas.Rt arm still swollen,fingers pinkish,good capillary refill.Elevated on pillow.Grandmother said it's okay to start a new Iv.Notified Denilson Lucas. charge nurse.
[2018-12-16] MEDS: ENOXAPARIN SODIUM 30 MG/0.3 ML SQ SCH ×2 (09:00→21:00)
[2018-12-16] MEDS: FAMOTIDINE/PF 20 MG/2 ML VIAL IV SCH ×2 (09:48→20:37)
[2018-12-16 11:00] VITALS: BP 104/56
--- NOTE | 2018-12-16 12:38 | NUR ---
DCP CM met with pt and grandmother, patient unable to answer questions at this time, spoke to grandmother, discussed dc plans. Pt is dependent, requires assistance w/ADL's, lives at home with grandmother and family. Has a provider 39hrs/wk, jazmyne lift, wheelchair. Grandmother and family takes care of pt's tube feedings. Pt has good support system in place. Feels safe to go back home, family assists with needs, per grandmother pt uses EMS transport if necessary. DC plan to home once stable. CM to cont to follow up. Addendum: 12/16/18 at 1245 by EMMY NAZARIO LVN CM Amended: Links added.
[2018-12-16 15:55] VITALS: BP 92/49
--- NOTE | 2018-12-16 16:07 | NUR ---
Nutrition intervention: Nutrition consult for tube feeding. Pt with PMH of CHARGE syndrome, constipation, CAD and CABG. Pt with PEG tube placement and grandmother at bedside. Pt's grandmother reports feeding Ensure Plus for a year now, however believes pt is intolerant to formula d/t sudden emesis in August, September and recently in November. Grandmother reports feeding patient up to 10cans of Ensure Plus daily which if accurate would be providing 3600calories, 130g protein, excessive infusion. RD spoke to grandmother and explained that Ensure Plus is not a formula intended for skilled nursing sole-source of nutrition and recommends formula change to Jevity 1.5. Pt's grandmother hesitant but agrees to try formula while pt is admitted to monitor tolerance however new formula is to begin tomorrow. Pt's grandmother believes he may be intolerant to milk. RD to continue monitoring pt's nutritional status and f/u with Jevity 1.5 trials. Addendum: 12/16/18 at [address] RD Amended: Links added.
[2018-12-16] MEDS: PANTOPRAZOLE SODIUM 40 MG TABLET.DR PO SCH (17:39)
[2018-12-16 19:00] VITALS: BP 99/68
[2018-12-16] MEDS: LACTULOSE 20 GM/30 ML UDCUP JT SCH (20:37)
[2018-12-16] MEDS: LEVOFLOXACIN 500 MG/D5W 100 ML 100 ML IV SCH (20:37)
[2018-12-16] MEDS: LAMOTRIGINE 25 MG PEG SCH (21:00)
[2018-12-16] MEDS: AZITHROMYCIN 500MG+NS 250ML 250 ML IV SCH (23:02)
[2018-12-17] VITALS: BP 98/43
[2018-12-17] MEDS: SODIUM CHLORIDE 0.9% 1000ML 1,000 ML IV SCH ×2 (02:23→21:35)
[2018-12-17 04:00] VITALS: BP 93/72
[2018-12-17 05:01] LABS: BASOPHILS % (AUTO) 0.2 % (0.0-5.0); HEMATOCRIT 31.6 % (42-54); LYMPHOCYTES % (AUTO) 15.4 % (21.0-51.0); MEAN CORPUSCULAR HEMOGLOBIN 26.7 pg (27.0-33.0); MEAN CORPUSCULAR HGB CONC 32.8 g/dL (32.0-36.0); MEAN CORPUSCULAR VOLUME 81.4 fL (79-99); MONOCYTES % (AUTO) 5.4 % (3.0-13.0); NUCLEATED RED BLOOD CELLS 0.1 % (0.0-0.19); PLATELET COUNT (AUTO) 122 K/uL (130-400); RED BLOOD CELL COUNT(AUTO) 3.88 MIL/uL (4.50-6.20); RED CELL DISTRIBUTION WIDTH 18.8 % (11.0-15.5); WHITE BLOOD COUNT (AUTO) 9.3 K/uL (4.8-10.8)
[2018-12-17 05:11] LABS: CREATININE 0.7 mg/dL (0.5-1.5); POTASSIUM 3.1 mmol/L (3.5-5.1)
[2018-12-17] MEDS: ALBUTEROL SULFATE 0.083% 2.5 MG/3 ML INH IH SCH ×4 (06:24→23:39)
[2018-12-17 07:00] VITALS: BP_SYST 103; BP_SYST 118; BP_DIAS 58; BP_DIAS 64
[2018-12-17] MEDS: ENOXAPARIN SODIUM 30 MG/0.3 ML SQ SCH ×2 (09:00→21:00)
[2018-12-17] MEDS ORDERED: LEVO500T2 PO (09:12)
[2018-12-17] MEDS: LACTULOSE 20 GM/30 ML UDCUP JT SCH ×2 (10:28→21:00)
[2018-12-17] MEDS: FAMOTIDINE/PF 20 MG/2 ML VIAL IV SCH ×2 (10:28→21:00)
[2018-12-17 11:00] VITALS: BP 126/59
--- NOTE | 2018-12-17 12:57 | NUR ---
INFO PATIENT WITH TEMP OF 101.5. DR. SPENCER NOTIFIED OF CHANGE IN CONDITION. REQUEST RESPIRATORY PCR. ALSO, GRANDMOTHER ADMINISTERED DOSE OF IBUPROPHEN FOR TEMP FROM HOME MEDICATIONS. GRANDMOTHER WANTED TO LEAVE AMA WITH RX FOR LEVAQUIN THAT DR. SPENCER HAD WRITTEN. CHARGE NURSE SEKOU SPOKE WITH GRANDMOTHER AND EXPLAINED NECESSITY OF WAITING FOR RESULTS OF RESPIRATORY PCR AND THAT TEST WOULD BE EXPIDITED. GRANDMOTHER AGREED TO WAIT FOR RESULTS.
--- NOTE | 2018-12-17 15:19 | NUR ---
[facility] CONSULT PATIENT ASSESSED ORDERED: NO OPEN WOUNDS PRESENT AT THIS TIME; [facility] RECOMMENDATIONS NOT REQUIRED. Addendum: 12/17/18 at 1520 by NEHEMIAS CHIRINOS LVN LVN W Amended: Links added.
[2018-12-17 16:00] VITALS: BP 116/51
[2018-12-17] MEDS: PANTOPRAZOLE SODIUM 40 MG TABLET.DR PO SCH (17:00)
[2018-12-17 19:00] VITALS: BP 129/69
[2018-12-17] MEDS ORDERED: POTASSIUM CHLORIDE 10MEQ/100ML 100 ML IV PRN (20:30)
[2018-12-17] MEDS ORDERED: LIDOCAINE HCL-MPF 1% 2ML VIAL IVP PRN (20:30)
[2018-12-17] MEDS: LAMOTRIGINE 25 MG PEG SCH (21:00)
[2018-12-17] MEDS: LEVOFLOXACIN 500 MG/D5W 100 ML 100 ML IV SCH (21:28)
[2018-12-17] MEDS: AZITHROMYCIN 500MG+NS 250ML 250 ML IV SCH (23:04)
[2018-12-18] VITALS: BP 132/51
[2018-12-18 04:00] VITALS: BP 114/48
[2018-12-18] MEDS: ALBUTEROL SULFATE 0.083% 2.5 MG/3 ML INH IH SCH ×2 (07:39→11:49)
[2018-12-18 08:00] VITALS: BP 116/63
[2018-12-18] MEDS: ENOXAPARIN SODIUM 30 MG/0.3 ML SQ SCH (09:00)
[2018-12-18] MEDS: FAMOTIDINE/PF 20 MG/2 ML VIAL IV SCH (09:43)
[2018-12-18] MEDS: LACTULOSE 20 GM/30 ML UDCUP JT SCH (09:44)
[2018-12-18 11:00] VITALS: BP 117/78
--- NOTE | 2018-12-18 11:00 | NUR ---
CM Note: [employer] pending to approve EMS transport; as per grandmother cancel EMS; will go by private car instead. Spoke to Shari w/[employer], received request for non emergent ambulance transport [facility] this morning, Currently working on auth. Aware dcp for today. Pt pending auth at this time. Informed pt's grandmother. Stated to cancel auth will have daughter assist w/transportation via private vehicle instead as she would like to go home with pt already. Stated daughter will be arriving within 30min-1hr. Primary nurse and charge nurse aware. Charge nurse to assist with dc papers. CM to cont to follow up.
[2018-12-18] MEDS ORDERED: PHARMACY COMMUNICATION MISC SCH (11:45)
[2018-12-18] MEDS ORDERED: POTASSIUM CHLORIDE 10% ELIXIR 20 MEQ/15 ML UDCUP GT SCH ×2 (11:45)
[2018-12-18] MEDS ORDERED: DOXY100C2 PO (15:30)
[2018-12-18 16:00] VITALS: BP 102/74
== END 2018-12-18 17:05 | disposition home or self-care (01) | DRG 871 ==
LOC: EDH 14:33 → OBSVTOIN 19:05 → EDHIP 19:05 → 3DH 22:04
PROVIDERS: ADMIT Internal Medicine; ATTEND Internal Medicine
DX: A41.9 Sepsis, unspecified organism (principal); J96.01 Acute respiratory failure with hypoxia; J18.9 Pneumonia, unspecified organism; E87.2 Acidosis; Q89.8 Other specified congenital malformations; I25.10 Atherosclerotic heart disease of native coronary artery without angina pectoris; I51.7 Cardiomegaly; J20.9 Acute bronchitis, unspecified; Z74.01 Bed confinement status; Z95.1 Presence of aortocoronary bypass graft; Z88.0 Allergy status to penicillin; Z88.8 Allergy status to other drugs, medicaments and biological substances; Z82.0 Family history of epilepsy and other diseases of the nervous system
CPT/HCPCS: 36415; 71045; 80048; 80053; 81001; 82550; 83605; 83874; 84132; 84484; 85025; 85610; 85730; 87040; 87077; 87088; 87186; 87486; 87581; 87633; 87798; 87804; 93005; 94640; 94664; 99291; G0378; J0456; J1650; J1956; J3490; J7030

== ENCOUNTER 2024-01-07 10:30 | Day surgery (SDC) | payer MEDICAID ==
[~2024-01-07] VITALS: Ht 144.8 cm; Wt 34.0 kg
[2024-01-07] VITALS (19 sets, daily range): BP systolic 83–99; BP diastolic 41–75; PULSE 57–76; RESP 12–16
[~2024-01-07 10:30] MED LIST changes: +0.9%NACL 1000ML 1,000 ML IV ONE; +DOCU-133 PO; -IBUP100O20 PO; -PANT40SU PO; +PANTOPRAZOLE PO
[2024-01-07] MEDS ORDERED: PROPOFOL 10 MG/ML 20ML VIAL IV ONE (12:39)
== END 2024-01-07 15:30 | disposition home or self-care (01) ==
LOC: DAH 10:30 → ENDO 10:30
PROVIDERS: ATTEND Internal Medicine
DX: R13.10 Dysphagia, unspecified (principal); K31.89 Other diseases of stomach and duodenum; K22.89 Other specified disease of esophagus; K21.9 Gastro-esophageal reflux disease without esophagitis; D50.9 Iron deficiency anemia, unspecified; K59.00 Constipation, unspecified; G80.9 Cerebral palsy, unspecified; Z93.1 Gastrostomy status; Z88.8 Allergy status to other drugs, medicaments and biological substances; Z98.890 Other specified postprocedural states
CPT/HCPCS: 43239; J7030; J3490; A4620; A4215 ×2; A4223; A4222; A4221; A4663; A4606; J2704